=== PATIENT | female | born 1970 | race Caucasian/White ===

== ENCOUNTER 2023-05-02 12:36 | Emergency (ER) | payer OTHER ==
[~2023-05-02] VITALS: Ht 152.4 cm; Wt 77.1 kg
[2023-05-02 12:48] VITALS: BP 127/72; PULSE 94; RESP 20; TEMP 98.7; O2SAT 98
[2023-05-02] MEDS ORDERED: IPRATROPIUM 0.02% 0.5 MG/2.5 ML NEBU INH ONE (13:30)
[2023-05-02] MEDS ORDERED: ALBUTEROL 0.083% 2.5 MG/3 ML NEBU INH ONE (13:30)
[2023-05-02 13:45] LABS: BASOPHILS % (AUTO) 0.3 % (0.0-2.0); EOSINOPHILS # (AUTO) 0.2 K/uL (0-0.4); EOSINOPHILS % (AUTO) 7.1 % (0.0-4.0); HEMATOCRIT 37.1 % (36-48); HEMOGLOBIN 12.6 g/dL (12.0-16.0); LYMPHOCYTES # (AUTO) 1.6 K/uL (2.5-16.5); LYMPHOCYTES % (AUTO) 52.8 % (20.5-51.1); MEAN CORPUSCULAR HEMOGLOBIN 27 pg (27-31); MEAN CORPUSCULAR HGB CONC 34 g/dL (33-37); MEAN CORPUSCULAR VOLUME 80.2 fL (80-94); MONOCYTES # (AUTO) 0.2 K/uL (0.8-1.0); MONOCYTES % (AUTO) 5.3 % (1.7-9.3); NEUTROPHILS % (AUTO) 34.5 % (42.2-75.2); PLATELET COUNT (AUTO) 177 K/uL (140-450); RED BLOOD CELL COUNT(AUTO) 4.63 MIL/uL (4.20-5.40); RED CELL DISTRIBUTION WIDTH 14.4 % (11.6-13.7)
[2023-05-02 13:58] VITALS: PULSE 79; RESP 22; O2SAT 98
[2023-05-02 14:01] LABS: ALANINE AMINOTRANSFERASE 44 U/L (12-78); ALBUMIN 3.2 g/dL (3.4-5.0); ALKALINE PHOSPHATASE 98 U/L (50-136); ASPARTATE AMINOTRANSFERASE 29 U/L (15-37); CALCIUM 8.8 mg/dL (8.5-10.1); CARBON DIOXIDE 26.8 mmol/L (21-32); CHLORIDE 105 mmol/L (98-107); CREATININE 0.8 mg/dL (0.6-1.3); GFR ARICAN-AMERICAN 96 mL/min (>90); GFR NON ARICAN-AMERICAN 79 mL/min (>90); GLUCOSE 215 mg/dL (74-106); POTASSIUM 3.8 mmol/L (3.5-5.1); SODIUM SERUM 141 mmol/L (136-145); TOTAL BILIRUBIN 0.2 mg/dL (0.0-1.0); TOTAL PROTEIN, SERUM 8.1 g/dL (6.4-8.2); UREA NITROGEN, BLOOD 13 mg/dL (7-18)
[2023-05-02 14:38] LABS: FLU A ANTIGEN negative (NEGATIVE); FLU B ANTIGEN NEGATIVE (NEGATIVE)
[2023-05-02] MEDS ORDERED: ACETAMINOPHEN EXTRA STRENGTH 500 MG TAB PO ONE (14:40)
[2023-05-02] MEDS ORDERED: KETOROLAC 30 MG/ML VIAL IVP ONE (14:40)
[2023-05-02] MEDS ORDERED: NACL 0.9% 1,000 ML IV ONE (14:40)
[2023-05-02 15:11] VITALS: O2SAT 96
[2023-05-02 16:07] LABS: LACTIC ACID 2.1 mmol/L (0.4-2.0)
[2023-05-02] MEDS ORDERED: PRED20TA5 PO (18:46)
[2023-05-02 19:28] VITALS: BP 103/41; PULSE 62; RESP 18; TEMP 97.2; O2SAT 96
== END 2023-05-02 19:28 | disposition home or self-care (01) ==
LOC: MED 12:36
DX: R06.02 Shortness of breath (principal); Z20.822 Contact with and (suspected) exposure to COVID-19; R07.9 Chest pain, unspecified; J45.909 Unspecified asthma, uncomplicated; I10 Essential (primary) hypertension; Z79.899 Other long term (current) drug therapy; Z79.4 Long term (current) use of insulin
CPT/HCPCS: 36415; 71045; 80053; 83605; 84484; 85025; 85379; 87040; 87426; 87804; 93005; 94640; 96361; 96374; 99285; J1885; J7030; J7613; J7644; Q0092